=== PATIENT | male | born 1995 | race Caucasian/White ===

== ENCOUNTER 2017-08-10 17:44 | Emergency (ER) | payer OTHER ==
--- NOTE | 2017-08-10 19:08 | EDM.PDOC ---
ED HPI GENERAL MEDICAL PROBLEM - General Chief Complaint: ENT Problem Stated Complaint: TOOTH PAIN Time Seen by Provider: 08/10/17 19:05 Source of Information: Reports: Patient History Limitations: Reports: No Limitations - History of Present Illness INITIAL COMMENTS - FREE TEXT/NARRATIVE: 22-year-old male attends the ED with severe dental pain right lower molar tooth. States it's been bothersome intermittently for a couple of months but it' s become much more painful and constant throbbing pain over the last 48 hours. Motrin and Tylenol are not helping the pain. Pain kept him awake most of last night. He has no other dental pain just this one bad tooth. Onset: Gradual Onset Date: 08/08/17 Duration: Day(s): Location: Reports: Face (Dental pain right lower more) Quality: Reports: Ache, Pressure, Throbbing Severity: Moderate Improves with: Reports: None Worsens with: Reports: Eating Context: Denies: Activity, Exercise, Lifting, Sick Contact Associated Symptoms: Denies: No Other Symptoms, Confusion, Chest Pain, Cough, cough w sputum, Diaphoresis, Fever/Chills, Headaches, Loss of Appetite, Malaise , Seizure, Shortness of Breath, Syncope Treatments DIRECTOR INSTRUCTIONAL MATERIAL: Reports: Acetaminophen, NSAIDS (Motrin) Right Lower Oral/Mouth Pain Score (Numeric/FACES): 6 - Related Data Allergies Allergy/AdvReac Type Severity Reaction Status Date / Time iodine Allergy Redness Verified 08/10/17 17:54 Home Meds: Home Meds Amoxicillin/Clavulanate K [Augmentin 500-125 MG] 1 tab PO BID #20 tablet [Rx] oxyCODONE HCl/Acetaminophen [Percocet 10-325 mg Tablet] 1 each PO Q4H PRN #15 tablet 08/10/17 [Rx] Past Medical History - Past Surgical History HEENT Surgical History: Reports: Tonsillectomy Social & Family History - Tobacco Use Smoking Status *Q: Never Smoker Second Hand Smoke Exposure: No - Caffeine Use Caffeine Use: Reports: Energy Drinks - Recreational Drug Use Recreational Drug Use: No - Living Situation & Occupation Living situation: Reports: Single Occupation: Unemployed ED ROS ENT - Review of Systems Review Of Systems: See Below Constitutional: Denies: Fever, Chills, Malaise, Weakness, Fatigue, Decreased Appetite, Weight Loss HEENT: Reports: Dental Pain. Denies: Ear Pain Respiratory: Reports: No Symptoms (Right lower molar tooth.) Cardiovascular: Reports: No Symptoms Endocrine: Reports: No Symptoms GI/Abdominal: Reports: No Symptoms : Reports: No Symptoms Musculoskeletal: Reports: No Symptoms Skin: Reports: No Symptoms Neurological: Reports: No Symptoms Psychiatric: Reports: No Symptoms Hematologic/Lymphatic: Reports: No Symptoms Immunologic: Reports: No Symptoms ED EXAM, ENT - Physical Exam Exam: See Below Exam Limited By: No Limitations General Appearance: Alert, WD/WN, Mild Distress Eye Exam: Bilateral Eye: Normal Inspection Ears: Normal TMs Mouth/Throat: Dental Abcess (Patient has a fracture of his right lower first molar tooth with 40% of the tooth absent. The gingiva around it is erythematous without any obvious dental abscess that is pointing. Remainder of his teeth appear to be actually in good health.), Dental Tenderness Head: Atraumatic, Normocephalic, Other Neck: No: Lymphadenopathy (L), Lymphadenopathy (R) (No facial swelling. No submandibular adenopathy) Respiratory/Chest: No Respiratory Distress, Lungs Clear, Normal Breath Sounds Cardiovascular: Normal Peripheral Pulses, Regular Rate, Rhythm, No Edema, No Murmur, No Rub Course - Vital Signs Last Recorded V/S: Last Vital Signs Temp 36.3 C 08/10/17 17:49 Pulse 102 H 08/10/17 17:49 Resp 13 08/10/17 17:49 BP 149/99 H 08/10/17 17:49 Pulse Ox 98 08/10/17 17:49 - Radiology Interpretation Free Text/Narrative:: 22-year-old male presents to the ED with severe dental pain involving his right lower second molar tooth. The tooth is fractured badly with 40% of the tooth missing. The surrounding gingiva are swollen but there is no pointing abscess. Plan Augmentin 500 mg twice a day for the next 10 days. Percocet 02/19/ one tablet every 4-6 hours needed for pain relief in combination with Aleve 2 tablets every 8 hours for pain and inflammation relief. Follow-up with dentist when able to have the tooth extracted so that this infection does not reoccur. Departure - Departure Time of Disposition: 19:05 Disposition: Home, Self-Care 01 Condition: Fair Clinical Impression: Dental abscess - Discharge Information Prescriptions: Amoxicillin/Clavulanate K [Augmentin 500-125 MG] 1 tab PO BID #20 tablet oxyCODONE HCl/Acetaminophen [Percocet 10-325 mg Tablet] 1 each PO Q4H PRN #15 tablet PRN Reason: Dental pain relief Referrals: PCP,None [Primary Care Provider] - Forms: ED Department Discharge Additional Instructions: Evaluation the emergency room tonight in regards to fractured right first lower molar tooth. This is resulted in a dental infection or dental abscess at the root of the tooth. This is the cause of severe pain right mandible. So far no infection is present to the facial tissues. Treatment is to continue Aleve 2 tablets every 8 hours which reduces pain and inflammation. Percocet 10/3/25 milligram tablet one every 4-6 hours needed for pain relief. Antibiotic is to be Augmentin 500 mg twice daily for the next 10 days to clear up dental infection. He should expect marked marked decrease in pain as the infection comes under control over the next 72 hours. Of course you will need to follow- up with a dentist to have this tooth removed as clinically I do not believe it is salvageable due to missing approximately 40% of the tooth.
== END 2017-08-10 19:15 | disposition home or self-care (01) ==
LOC: JD.ED 17:44
DX: K04.7 Periapical abscess without sinus (principal); Z91.09 Other allergy status, other than to drugs and biological substances
CPT/HCPCS: 99283

== ENCOUNTER 2019-02-10 04:23 | Emergency (ER) | payer MEDICAID ==
--- NOTE | 2019-02-10 05:13 | EDM.PDOC ---
ED HPI GENERAL MEDICAL PROBLEM - General Chief Complaint: Genitourinary Problem Stated Complaint: TESTICAL PAIN Time Seen by Provider: 02/10/19 04:57 Source of Information: Reports: Patient, Family (Mother, stepfather) History Limitations: Reports: No Limitations - History of Present Illness INITIAL COMMENTS - FREE TEXT/NARRATIVE: Mr. 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 At that time, the patient states that he was in excruciating pain, enough to cause him to vomit. The patient states that he woke at 03:00 with left testis pain. The pain does not radiate. He acknowledges that his current presentation is nothing like the testicular torsion from 2016. No recent dysuria, flank pain, or lower back pain. No recent fever, nausea, vomiting, constipation, diarrhea, abdominal pain , recent weight gain or weight loss, recent bloody bowel movements or black problems, recent joint aches, headaches, or rashes. The patient took Aleve prior to coming to the ED. Here in the ED, the patient appears to be calm and in no distress whatsoever. The patient acknowledges that he has never had sexual intercourse. The patient does not have a PCP. Left Scrotum Pain Score (Numeric/FACES): 7 - Related Data Allergies Allergy/AdvReac Type Severity Reaction Status Date / Time iodine Allergy Redness Verified 02/10/19 04:35 Home Meds: Home Meds Nitrofurantoin Monohyd/M-Cryst [Macrobid 100 mg Capsule] 1 tab PO Q12H #13 capsule 02/10/19 [Rx] Past Medical History Musculoskeletal History: Reports: Fracture (right arm) - Past Surgical History HEENT Surgical History: Reports: Tonsillectomy Male Surgical History: Reports: Other (See Below) (Right orchiectomy 2016) Social & Family History - Tobacco Use Smoking Status *Q: Never Smoker Second Hand Smoke Exposure: Yes - Caffeine Use Caffeine Use: Reports: None - Alcohol Use Alcohol Use History: No - Recreational Drug Use Recreational Drug Use: No - Living Situation & Occupation Living situation: Reports: Single, with Family (Mother, stepfather) Occupation: Unemployed ED ROS GENERAL - Review of Systems Review Of Systems: ROS reveals no pertinent complaints other than HPI. ED EXAM, RENAL/ - Physical Exam Exam: See Below Exam Limited By: No Limitations General Appearance: Alert, WD/WN, No Apparent Distress GI/Abdominal: Normal Bowel Sounds, Soft, Non-Tender, No Organomegaly, No Distention, No Abnormal Bruit, No Mass (Male) Exam: No Hernia, Circumcised, Other (absent right testis). No: Scrotum Tenderness (L), Scrotum Tenderness (R), Testicular Tenderness (L) Course - Vital Signs Last Recorded V/S: Last Vital Signs Temp 17.4 C L 02/10/19 04:29 Pulse 59 L 02/10/19 04:29 Resp 20 02/10/19 04:29 BP 138/85 02/10/19 04:29 Pulse Ox 97 02/10/19 04:29 - Orders/Labs/Meds Labs: Laboratory Tests 02/10/19 Range/Units 05:00 Urine Color Dark yellow (Yellow) Urine Appearance Cloudy H (Clear) Urine pH 5.0 (5.0-8.0) Ur Specific [place] > or = 1.030 (1.005-1.030) Urine Protein 3+ H (Negative) Urine Glucose (UA) Trace H (Negative) Urine Ketones Trace H (Negative) Urine Occult Blood 2+ H (Negative) Urine Nitrite Negative (Negative) Urine Bilirubin 2+ H (Negative) Urine Urobilinogen 1.0 (0.2-1.0) Ur Leukocyte Esterase Negative (Negative) Urine RBC 5-10 H (0-5) /hpf Urine WBC 0-5 (0-5) /hpf Ur Epithelial Cells Not seen (0-5) /hpf Urine Bacteria Many H (FEW) /hpf Urine Mucus Moderate H (FEW) /hpf - Re-Assessments/Exams Free Text/Narrative Re-Assessment/Exam: 02/10/19 05:10 While the patient initially complained of left testicular pain, on examination, he has no testicular tenderness, and he states that, in fact, the pain is just generally "down there" nonspecifically, meaning the whole genital area. I don't feel an inguinal hernia on palpation. The patient urinated a small amount, and it is cloudy, indicating that perhaps he has a UTI, therefore I will send it for urinalysis, even though it is not a clean catch. In the meantime, I will have the patient drink water, in anticipation that we may need a repeat urine sample. As the patient has never been sexually active, GC/chlamydia is not a concern. 02/10/19 06:23 The patient's urinalysis is consistent with a UTI. I have ordered a urine culture, and will start him on oral nitrofurantoin. 02/10/19 06:28 Test results discussed with the patient and his mother, and stepfather. The patient will be prescribed nitrofurantoin for 7 days, but I would like him to follow-up with someone in the [facility] to check on the urine culture results in 3 days. Departure - Departure Time of Disposition: 06:30 Disposition: Home, Self-Care 01 Condition: Good Clinical Impression: UTI (urinary tract infection) - Discharge Information *PRESCRIPTION DRUG MONITORING PROGRAM REVIEWED*: Not Applicable *COPY OF PRESCRIPTION DRUG MONITORING REPORT IN PATIENT RYAN: Not Applicable Referrals: PCP,None [Primary Care Provider] - Forms: ED Department Discharge Additional Instructions: You were seen in the emergency room for generalized genital pain. Workup in the ER included a urinalysis, which found that you have a urinary tract infection. You have been started on the antibiotic nitrofurantoin (Macrobid). A prescription for nitrofurantoin has been sent to the [facility]. Take one tablet of nitrofurantoin every 12 hours, starting this evening, Saturday, , as prescribed. Finish the entire prescription unless told otherwise by a doctor. Stay adequately hydrated. Follow-up in the [facility] on 02/13/2019, to have them check on your urine culture results, to make sure that you are on the correct antibiotic. If any other problems, please do not hesitate to return to the ER.
[2019-02-10] MEDS ORDERED: Nitrofurantoin Monohydrate/Macrocrystalline 100 MG Cap PO STA (06:24)
== END 2019-02-10 06:41 | disposition home or self-care (01) ==
LOC: JD.ED 04:23
DX: N39.0 Urinary tract infection, site not specified (principal); Z98.890 Other specified postprocedural states; Z88.8 Allergy status to other drugs, medicaments and biological substances
CPT/HCPCS: 81001; 87086; 99284; A9270

== ENCOUNTER 2019-03-22 21:20 | Emergency (ER) | payer BC, MEDICAID ==
[2019-03-22] MEDS ORDERED: FLU Vacc QS2019-20(6MOS+)/PF 60 MCG/0.5 ML SYRINGE IM ONE (21:45)
--- NOTE | 2019-03-22 21:47 | EDM.PDOC ---
ED HPI GENERAL MEDICAL PROBLEM - General Chief Complaint: Skin Complaint Stated Complaint: LUMP ON HEAD Time Seen by Provider: 03/22/19 21:31 Source of Information: Reports: Patient, RN Notes Reviewed History Limitations: Reports: No Limitations - History of Present Illness INITIAL COMMENTS - FREE TEXT/NARRATIVE: Patient is a 23-year-old male who presents to the ED for the evaluation of a large bump on his for head. This is in the midline, slightly to the left in his hairline. Patient states he has not noticed this bump before, but went to his mother's house, and his mother noticed the bump tonight. He does have some mild hair loss involved with this area. He denies any pain to the lump, and there is no redness associated with this area. He denies any trauma to the area , nor does he state that he had any trauma to his head as a younger child. He does not have a primary care provider. - Related Data Allergies Allergy/AdvReac Type Severity Reaction Status Date / Time iodine Allergy Redness Verified 03/22/19 21:30 Home Meds: Home Meds . [No Known Home Meds] 03/22/19 [History] Past Medical History Genitourinary History: Reports: Other (See Below) Other Genitourinary History: one testicle removed Musculoskeletal History: Reports: Fracture Other Musculoskeletal History: fx R arm - Past Surgical History HEENT Surgical History: Reports: Tonsillectomy Male Surgical History: Reports: Other (See Below) Social & Family History - Tobacco Use Smoking Status *Q: Never Smoker - Caffeine Use Caffeine Use: Reports: Coffee, Energy Drinks, Soda Other Caffeine Use: coffee sometimes - Recreational Drug Use Recreational Drug Use: No - Living Situation & Occupation Living situation: Reports: Single, with Family (Mother, stepfather) Occupation: Unemployed ED ROS GENERAL - Review of Systems Review Of Systems: See Below Constitutional: Denies: Fever, Chills HEENT: Reports: No Symptoms Respiratory: Reports: No Symptoms Cardiovascular: Reports: No Symptoms Endocrine: Reports: No Symptoms GI/Abdominal: Reports: No Symptoms : Reports: No Symptoms Musculoskeletal: Reports: Other (lump on forehead; see HPI) Skin: Reports: Lumps (on foreahead, see HPI) Neurological: Reports: No Symptoms Psychiatric: Reports: No Symptoms Hematologic/Lymphatic: Reports: No Symptoms Immunologic: Reports: No Symptoms ED EXAM, SKIN/RASH Exam: See Below Exam Limited By: No Limitations General Appearance: Alert, WD/WN, No Apparent Distress Eye Exam: Bilateral Eye: EOMI, Normal Inspection, PERRL Ears: Normal External Exam Nose: Normal Inspection Throat/Mouth: Normal Inspection, Normal Lips, Normal Teeth, Normal Gums, Normal Oropharynx, Normal Voice, No Airway Compromise Head: Atraumatic, Other (Large, questionable bony raised area to his medial left forehead. This has a palpable step-off at the most posterior worsen of the lump, but no palpable step-off at the anterior portion or lateral portions. There is mild hair loss associated on the lump.) Neck: Normal Inspection Respiratory/Chest: No Respiratory Distress, Lungs Clear, Normal Breath Sounds, No Accessory Muscle Use, Chest Non-Tender Cardiovascular: Normal Peripheral Pulses, Regular Rate, Rhythm, No Edema, No Murmur Extremities: Normal Inspection, Normal Capillary Refill Neurological: Alert, Oriented, Normal Cognition, No Motor/Sensory Deficits Psychiatric: Normal Affect, Normal Mood Skin: Warm, Dry, Intact, Normal Color, No Rash Location, Skin: Head, Face Course - Vital Signs Last Recorded V/S: Last Vital Signs Temp 97.7 F 03/22/19 21:27 Pulse 68 03/22/19 21:27 Resp 18 03/22/19 21:27 BP 135/78 03/22/19 21:27 Pulse Ox 94 L 03/22/19 21:27 - Orders/Labs/Meds Orders: Active Orders 24 hr Category Date Time Status Influenza Vaccine Charge [RC] .DISCHARGE Care 03/22/19 21:32 Active FLU Vacc [id number](6MOS+)/PF [Fluzone Quad Med 03/22/19 21:45 Once Syringe] 60 mcg IM .ONCE ONE Pharmacy to Dose - InFluenza V [Pharmacy to Dose - Med 03/22/19 21:32 Pending InFluenza Vaccine] 1 each IM ONETIME ONE Medication Orders Influenza Virus Vaccine (Pharmacy To Dose - Influenza Vaccine) 1 each IM ONETIME ONE Stop: 03/22/19 21:33 Influenza Virus Vaccine (Fluzone Quad Syringe) 60 mcg IM .ONCE ONE Stop: 03/22/19 21:46 Last Admin: 03/22/19 21:41 Dose: 60 mcg Meds: Medications Generic Name Dose Route Start Last Admin Trade Name Deanna PRN Reason Stop Dose Admin Influenza Virus Vaccine 1 each 03/22/19 21:32 Pharmacy To Dose - Influenza Vaccine IM 03/22/19 21:33 ONETIME ONE Influenza Virus Vaccine 60 mcg 03/22/19 21:45 03/22/19 21:41 Fluzone Quad [id number] Syringe IM 03/22/19 21:46 60 mcg .ONCE ONE Administration - Re-Assessments/Exams Free Text/Narrative Re-Assessment/Exam: 03/22/19 21:47 Patient presents to the ED for evaluation of a lump on his medial left forehead. Upon palpation of this, it is not fluctuant, and does not appear to be any sort of abscess in nature, it may very well be do to a underlying bony abnormality. I believe the best sort of imaging modality for this would be an MRI to evaluate this area. As the patient does not have a primary care provider we will give general recommendations that he follow up with one and have an MRI completed or biopsies of the area for further evaluation, what ever the primary care provider should deem appropriate. Departure - Departure Time of Disposition: 21:48 Disposition: Home, Self-Care 01 Condition: Good Clinical Impression: Head lump - Discharge Information *PRESCRIPTION DRUG MONITORING PROGRAM REVIEWED*: No *COPY OF PRESCRIPTION DRUG MONITORING REPORT IN PATIENT RYAN: No Referrals: PCP,None [Primary Care Provider] - Additional Instructions: You were evaluated in the ER today regarding the lump on your medial left forehead. This does not appear to be any sort of acute bacterial process or something that would require emergent management at tonight's visit. [facility], but it is likely that this may be a bony protrusion, recommend that you follow up with a primary care provider of choice, so that you may get follow-up evaluation of this. Our [facility] clinic number [phone], the [place] clinic is [phone]. Any sort of family practice provider would be able to provide you with the services. Further recommend an MRI of the area, as this would be best for evaluating soft tissue versus bony abnormality of the area. Please return to the ED at any time if your symptoms should change or worsen. - My Orders Last 24 Hours: My Active Orders 03/22/19 21:32 Influenza Vaccine Charge [RC] .DISCHARGE Pharmacy to Dose - InFluenza V [Pharmacy to Dose - InFluenza Vaccine] 1 each IM ONETIME ONE - Assessment/Plan Last 24 Hours: My Active Orders 03/22/19 21:32 Influenza Vaccine Charge [RC] .DISCHARGE Pharmacy to Dose - InFluenza V [Pharmacy to Dose - InFluenza Vaccine] 1 each IM ONETIME ONE
== END 2019-03-22 22:05 | disposition home or self-care (01) ==
LOC: JD.ED 21:20
DX: R22.0 Localized swelling, mass and lump, head (principal); Z88.8 Allergy status to other drugs, medicaments and biological substances
CPT/HCPCS: 90471; 90686; 99282; G0008

== ENCOUNTER 2019-09-08 23:13 | Emergency (ER) | payer BC, MEDICAID ==
[2019-09-08] MEDS ORDERED: Acetaminophen/HYDROcodone 325-5 MG Tab PO ONE (23:36)
[2019-09-08] MEDS ORDERED: Penicillin V Potassium 500 MG Tab PO STA (23:36)
--- NOTE | 2019-09-08 23:42 | EDM.PDOC ---
ED HPI GENERAL MEDICAL PROBLEM - General Chief Complaint: ENT Problem Stated Complaint: TOOTHACHE Time Seen by Provider: 09/08/19 23:23 Source of Information: Reports: Patient, Family (Mother) History Limitations: Reports: No Limitations - History of Present Illness INITIAL COMMENTS - FREE TEXT/NARRATIVE: Mr. Grant is a very pleasant 24-year-old man with a past medical history significant for cognitive developmental delay, who is now brought to the ED by his mother, who tells me that he developed a right lower tooth ache this past 09/06/2019. He has had dental decay of that tooth for some time. No recent injury. His mother tells me that she has been giving the patient ibuprofen 800 mg every 6 hours, without relief of pain. No recent fever or chills. No recent oral drainage. No swelling to the right side of his face. Review of prior medical records finds that the patient was seen in this ED for fracture of the same tooth on 08/10/2017. Here in the ED, the patient's initial BP is found to be mildly elevated at 151/ 93, otherwise, he is hemodynamically stable, afebrile, saturating 97% on room air. The patient's mother tells me that they have not yet contacted a dentist, however, they can do so tomorrow morning. The patient's PCP is Dr. Rodriguez Kirby. His Surgeon is Dr. Denise San. Right Lower Tooth/Teeth Pain Score (Numeric/FACES): 7 - Related Data Allergies Allergy/AdvReac Type Severity Reaction Status Date / Time iodine Allergy Redness Verified 09/08/19 23:22 Home Meds: Home Meds Penicillin V Potassium 500 mg PO Q6HR #40 tab 09/08/19 [Rx] Past Medical History Musculoskeletal History: Reports: Fracture (right arm) Neurological History: Reports: Other (See Below) (Cognitive developmental delay) Endocrine/Metabolic History: Reports: Obesity/BMI 30+ - Past Surgical History HEENT Surgical History: Reports: Tonsillectomy Male Surgical History: Reports: Other (See Below) (Right orchiectomy 2016) Dermatological Surgical History: Reports: Other (See Below) (Forehead lipoma excision) Social & Family History - Tobacco Use Smoking Status *Q: Never Smoker - Caffeine Use Caffeine Use: Reports: None Other Caffeine Use: coffee sometimes - Alcohol Use Alcohol Use History: No - Recreational Drug Use Recreational Drug Use: No - Living Situation & Occupation Living situation: Reports: Single, with Family (Mother, her fianc) Occupation: Unemployed ED ROS ENT - Review of Systems Review Of Systems: Comprehensive ROS is negative, except as noted in HPI. ED EXAM, ENT - Physical Exam Exam: See Below Exam Limited By: No Limitations General Appearance: Alert, WD/WN, No Apparent Distress Eye Exam: Bilateral Eye: EOMI, Normal Inspection Ears: Normal External Exam, Normal Canal, Hearing Grossly Normal, Normal TMs Nose: Normal Inspection, Normal Mucousa, No Blood Mouth/Throat: Normal Gums, Normal Lips, Normal Oropharynx, Other (Tooth #1 absent. Teeth #2, 3, 4 with significant gingivitis. Teeth #8, 9 with anterior caries. Tooth #14 with amalgam filling. Tooth #16 absent. Tooth #17 with incomplete eruption. Tooth #18 with amalgam filling. Tooth #19 with advanced decay to the gingiva. Tooth #30 (the tooth of concern) with advanced decay to the gingiva. No associated gingival swelling or pointing. Tooth #32 absent.) Head: Atraumatic, Normocephalic Neck: Normal Inspection, Supple, Non-Tender, Full Range of Motion. No: Lymphadenopathy (L), Lymphadenopathy (R) Course - Vital Signs Last Recorded V/S: Last Vital Signs Temp 36.1 C 09/08/19 23:19 Pulse 76 09/08/19 23:19 Resp 16 09/08/19 23:19 BP 151/93 H 09/08/19 23:19 Pulse Ox 97 09/08/19 23:19 - Orders/Labs/Meds Meds: Medications Discontinued Medications Generic Name Dose Route Start Last Admin Trade Name Deanna PRN Reason Stop Dose Admin Hydrocodone Bitart/Acetaminophen 2 tab 09/08/19 23:36 09/08/19 23:43 [place] 325-5 Mg PO 09/08/19 23:37 2 tab ONETIME ONE Administration Penicillin V Potassium 500 mg 09/08/19 23:36 09/08/19 23:43 Veetids PO 09/08/19 23:37 500 mg ONETIME STA Administration - Re-Assessments/Exams Free Text/Narrative Re-Assessment/Exam: 09/08/19 23:37 As above, the patient appears to have advanced decay of both teeth # 19 and 30, with #30 being the tooth of concern tonight. I do not see gingival swelling or pointing, however, given the extent of decay, there may very well be an infection, therefore the patient will be started on penicillin, and I will prescribe a 10-day course. The patient will be given 2 tablets of [place] tonight , the patient's mother assures me that they can follow-up with a dentist tomorrow. Departure - Departure Time of Disposition: 23:38 Disposition: Home, Self-Care 01 Condition: Good Clinical Impression: Dental infection - Discharge Information *PRESCRIPTION DRUG MONITORING PROGRAM REVIEWED*: Not Applicable *COPY OF PRESCRIPTION DRUG MONITORING REPORT IN PATIENT RYAN: Not Applicable Prescriptions: Penicillin V Potassium 500 mg PO Q6HR #40 tab Referrals: Rodriguez Kirby Jr, MD [Primary Care Provider] - Denise San MD [Physician] - Forms: ED Department Discharge Additional Instructions: Cate was seen in the emergency room for lower right dental pain. On examination, he has advanced decay of tooth #30. He has been started on the antibiotic penicillin, and a prescription for penicillin has been sent to the [facility], located at [address] [place] [address], in [place]. Give him 1 tablet of penicillin every 6 hours, as prescribed. He should finish the entire prescription unless told otherwise by dentist. He may take 3-4 tablets (600-800 mg) of [id number] ibuprofen every 8 hours , with food, as needed for discomfort. He needs to follow-up with a dentist at the next available appointment. If any other problems, please do not hesitate to return Cate to the ER. Sepsis Event Note - Evaluation Sepsis Screening Result: No Definite Risk - Focused Exam Vital Signs: Vital Signs Temp Pulse Resp BP Pulse Ox 09/08/19 23:19 36.1 C 76 16 151/93 H 97 Date Exam was Performed: 09/09/19 Time Exam was Performed: 05:37
== END 2019-09-08 23:48 | disposition home or self-care (01) ==
LOC: JD.ED 23:13
DX: K04.7 Periapical abscess without sinus (principal); K02.9 Dental caries, unspecified; K05.10 Chronic gingivitis, plaque induced; E66.9 Obesity, unspecified; Z68.36 Body mass index [BMI] 36.0-36.9, adult; Z91.09 Other allergy status, other than to drugs and biological substances
CPT/HCPCS: 99282; A9270; 99283

== ENCOUNTER 2025-04-03 14:08 | Emergency (ER) | payer BC, MEDICAID | END 2025-04-03 14:30 | disposition left against medical advice (07) | LOC: JD.ED 14:08 | DX: Z53.21 Procedure and treatment not carried out due to patient leaving prior to being seen by health care provider (principal) ==